=== PATIENT | female | born 1970 | race Caucasian/White ===

== ENCOUNTER 2018-01-12 15:22 | Emergency (ER) | payer OTHER ==
[~2018-01-12] VITALS: Ht 180.3 cm; Wt 81.6 kg
[2018-01-12 15:30] VITALS: Ht 180.3 cm; Wt 81.6 kg
[2018-01-12 15:50] VITALS: BP 139/74
== END 2018-01-12 15:50 | disposition other institution (70) ==
LOC: ED 15:22
DX: S50.812A Abrasion of left forearm, initial encounter (principal); Z88.1 Allergy status to other antibiotic agents; X58.XXXA Exposure to other specified factors, initial encounter; Y93.89 Activity, other specified; Y92.89 Other specified places as the place of occurrence of the external cause; Y99.8 Other external cause status